=== PATIENT | female | born 1995 | race Hispanic/Latino ===

== ENCOUNTER 2017-07-23 11:09 | Emergency (ER) | payer OTHER, BC ==
[~2017-07-23] VITALS: Ht 162.6 cm; Wt 52.2 kg
[~2017-07-23 11:09] MED LIST: MONONESSA1 EACH
[2017-07-23] MEDS ORDERED: HYDROCODONE/APAP 10MG-325MG TAB PO ONE (11:30)
[2017-07-23] MEDS ORDERED: KETOROLAC TROMETHAMINE 60 MG/2 ML VIAL IM ONE (11:30)
[2017-07-23] MEDS ORDERED: DIAZEPAM 5 MG TAB PO PRN (12:30)
[2017-07-23 13:20] VITALS: BP 97/67
== END 2017-07-23 13:15 | disposition home or self-care (01) ==
LOC: ER 11:09
DX: M54.2 Cervicalgia (principal); S16.1XXA Strain of muscle, fascia and tendon at neck level, initial encounter; M54.6 Pain in thoracic spine
CPT/HCPCS: 96372; 99283; J1885